=== PATIENT | male | born 1960 | race Caucasian/White ===

== ENCOUNTER 2022-09-04 07:59 | Observation (INO) ==
--- NOTE | 2022-08-04 12:03 | PAT Medication Instructions ---
Medication Instructions Date of Service August 04, 2022 Home Medications Medication Instructions Recorded Jakob Dexter #1 ea 06/12/22 Medication List: Celery Seed 1 tab PO DAILY arginine HCl (L-arginine) 1,000 mg tablet 1,000 mg PO DAILY ascorbic acid (vitamin C) 1,000 mg tablet (Vitamin C) 1,000 mg PO QAM beta carotene 7,500 mcg (25,000 unit) capsule 7,500 mcg PO DAILY cholecalciferol (vitamin D3) 25 mcg (1,000 unit) tablet (Vitamin D3) 25 mcg PO DAILY cyanocobalamin (vitamin B-12) 100 mcg tablet (Vitamin B-12) 100 mcg PO DAILY magnesium 250 mg tablet 250 mg PO DAILY omega 5-brs-skg-fish oil 1,000 mg (120 mg-180 mg) capsule (Fish Oil) 1 cap PO DAILY sour segovia extract 1,000 mg capsule (Tart Segovia Extract) 1,000 mg PO DAILY valsartan 160 mg-hydrochlorothiazide 12.5 mg tablet 1 tab PO QAM vitamin E 400 unit tablet 400 mg PO DAILY vitamins A,C,U-rrgs-vnvjuv 4,296 mcg-226 mg-90 mg capsule 1 cap PO DAILY STOP taking 2 weeks before surgery vitamin E 400 unit tablet 400 mg PO DAILY vitamins A,C,V-oqbb-ewssbq 4,296 mcg-226 mg-90 mg capsule 1 cap PO DAILY omega 2-glh-pqb-fish oil 1,000 mg (120 mg-180 mg) capsule (Fish Oil) 1 cap PO DAILY Celery Seed 1 tab PO DAILY arginine HCl (L-arginine) 1,000 mg tablet 1,000 mg PO DAILY sour segovia extract 1,000 mg capsule (Tart Segovia Extract) 1,000 mg PO DAILY DO NOT take the morning of surgery ascorbic acid (vitamin C) 1,000 mg tablet (Vitamin C) 1,000 mg PO QAM beta carotene 7,500 mcg (25,000 unit) capsule 7,500 mcg PO DAILY cholecalciferol (vitamin D3) 25 mcg (1,000 unit) tablet (Vitamin D3) 25 mcg PO DAILY cyanocobalamin (vitamin B-12) 100 mcg tablet (Vitamin B-12) 100 mcg PO DAILY magnesium 250 mg tablet 250 mg PO DAILY valsartan 160 mg-hydrochlorothiazide 12.5 mg tablet 1 tab PO QAM Other Notes If you have any questions please call us at [phone] or [phone] or [phone] or [phone]
--- NOTE | 2022-08-10 11:43 | Anesthesiology Consultation ---
Date of Service August 10, 2022 Assessment & Plan (1) Encounter for pre-operative examination: - Outpatient joint assessment: Patient is currently scheduled for inpatient pathway. If re-evaluated pending system levels during current pandemic/surgeon requests outpatient pathway, patient is not recommended candidate for outpatient joint program from anesthesia standpoint as patient's home support is not uncomfortable managing care at home for same day surgery. Chart Review Chart Review: Acceptable Risk for Surgery and Patient seen in Pre Admission Testing Teaching & Discussion Pre-Anesthesia Teaching/Discussion Notes: Instructed NPO after midnight before surgery, except medications with 15 cc of water. Medication instructions provided according to the PAT guidelines. History Surgery Operation Date: 09/04/22 07:00 Proposed Procedures p Right Total Knee Arthroplasty - Guanakito Howell MD Height/Weight Height: 5 ft 11 in Weight: 106.141 kg Allergies Allergy/AdvReac Type Severity Reaction Status Date / Time morphine Allergy Intermediate hives Verified 08/10/22 11:57 Medications Home Medications Medication Instructions Recorded Confirmed Last Taken Wheeled Walker #1 ea 06/12/22 06/12/22 Unknown Celery Seed 1 tab PO DAILY 08/04/22 08/04/22 Unknown arginine HCl (L-arginine) 1,000 mg 1,000 mg PO DAILY 08/04/22 08/04/22 Unknown tablet ascorbic acid (vitamin C) 1,000 mg 1,000 mg PO QAM 08/04/22 08/04/22 Unknown tablet (Vitamin C) beta carotene 7,500 mcg (25,000 7,500 mcg PO DAILY 08/04/22 08/04/22 Unknown unit) capsule cholecalciferol (vitamin D3) 25 25 mcg PO DAILY 08/04/22 08/04/22 Unknown mcg (1,000 unit) tablet (Vitamin D3) cyanocobalamin (vitamin B-12) 100 100 mcg PO DAILY 08/04/22 08/04/22 Unknown mcg tablet (Vitamin B-12) magnesium 250 mg tablet 250 mg PO DAILY 08/04/22 08/04/22 Unknown omega 3-ibb-xnb-fish oil 1,000 mg 1 cap PO DAILY 08/04/22 08/04/22 Unknown (120 mg-180 mg) capsule (Fish Oil) sour segovia extract 1,000 mg 1,000 mg PO DAILY 08/04/22 08/04/22 Unknown capsule (Tart Segovia Extract) valsartan 160 1 tab PO QAM 08/04/22 08/04/22 Unknown mg-hydrochlorothiazide 12.5 mg tablet vitamin E 400 unit tablet 400 mg PO DAILY 08/04/22 08/04/22 Unknown vitamins A,C,T-eire-ogythi 4,296 1 cap PO DAILY 08/04/22 08/04/22 Unknown mcg-226 mg-90 mg capsule Past Medical History Medical History (Updated 08/10/22 @ 12:09 by Ellie Russell PA-C) Gout hx History of COVID-summer - mild cold symptoms-resolved Hypertension controlled, stable per pt Needle phobia Patient denies h/o stroke, seizures, heart attack, heart failure, DM, blood clots or blood transfusions. Exercise / Class Metabolic Activity II 4-5 Yardwork/Stairs/Walk up hill (denies chest discomfort or shortness of breath with 1 FOS) Past Family History Family History Other No family history of adverse response to anesthesia Past Surgical History Surgical History History of colonoscopy History of hip replacement right History of tonsillectomy Past Anesthesia History No Hx of Anesthesia Complications and No Family Hx of Anesthesia Complications History of PONV No Hx of PONV and No Hx of Motion Sickness Social History Smoking Status: Current some day smoker (advised) tobacco type: cigars Do You Dip or Chew Tobacco: No Hx Alcohol Use: Yes Alcohol type: beer alcohol intake frequency: a few times a week Hx Substance Use: No substance use type: does not use Review of Systems Patient denies chest pain, shortness of breath, dyspnea on exertion, snoring, witnessed apneas, reflux, fever, chills, cough, wheezing, or palpitations. Physical Exam Vital Signs Vitals BP 164/102, 160/97 (Pt states had caffeine this morning, did not yet take antihypertensive and is nervous about bloodwork) P 93 SP02 96% on RA RESP 17 Physical Full cervical extension range of motion without pain TMD 3.5 finger breadths Mallampati Score 3 Dentition: intact, denies chipped or loose teeth, caps/crowns, implants or bridges Lungs: normal respiratory effort. Clear throughout to auscultation, no adventitious breath sounds Cardiac: regular rate and rhythm, no murmurs noted Carotid arteries: negative bruit bilat Lab Results Anesthesia Preop Results Results Anesthesia Widget: WBC 5.65 K/ul (4.8-10.8) 08/10/22 Hgb 15.9 g/dl (14.0-18.0) 08/10/22 Hct 46.3 % (42.0-52.0) 08/10/22 Plt 193 K/uL (130-400) 08/10/22 Na 132 mmol/L (136-145) L 08/10/22 K 3.7 mmol/L (3.5-5.1) 08/10/22 Cl 100 mmol/L (98-107) 08/10/22 CO2 22 mmol/L (21-32) 08/10/22 BUN 15 mg/dl (6-23) 08/10/22 Creat 0.81 mg/dl (0.6-1.4) 08/10/22 Glucose Level 92 mg/dl (70-99(Fasting)) 08/10/22 PT 10.2 Seconds (9.0-12.0) 08/10/22 PTT 26.6 Seconds (21.0-31.0) 08/10/22 INR 1.0 (0.9-1.1) 08/10/22 HA1c 5.5 % (4.5-5.6) 08/10/22 Blood Type A Positive 08/10/22 Antibody Screen NEGATIVE 08/10/22 Testing Electrocardiogram Date: 08/10/22 NSR, rate 91 bpm Chest X-Ray Date: 08/10/22 No prior studies are available for comparison at the time of dictation. The ca rdiomediastinal silhouette is unremarkable noting atherosclerotic calcification of the thoracic aorta. The lungs and pleural spaces are clear. There is no pneumothorax. The bony thorax appears intact. Degenerative change is noted in the spine. IMPRESSION: No active disease in the chest. COVID-19 Risk Screen Screening Information COVID-19 Screen Date: 08/10/22 Exposure 21 Days Family/Household +COVID Last 21 Days: No Exposure 10 Days Any COVID Exposure Last 10 Days: No Symptoms Last 10 Days Experienced COVID Sx Last 10 Days: No + COVID 0-90 Days COVID + in Last 0-90 Days: No
--- NOTE | 2022-08-28 18:48 | History and Physical Report ---
CHIEF COMPLAINT: Bilateral knee pain and discomfort, right side greater than left. HISTORY OF PRESENT ILLNESS: The patient is a 62-year-old gentleman who presents for surgical treatme nt of his right knee. He has got a long history of bilateral knee pain and discomfort, right side, a bit worse than the left. He has been followed by Susan with some injections, which helped only tempo rarily. He has global pain. The more he is up on his knees, the more they hurt. They swell more as the day goes on. He would like to proceed with surgical treatment. PAST MEDICAL HISTORY: Significant for, 1. Diabetes, well controlled with A1c of 5.5. 2. Arthritis. 3. Hypertension. PAST SURGICAL HISTORY: Includes right total hip replacement done elsewhere. ALLERGIES: GRASS. CURRENT MEDICATIONS: 1. Vitamin D3. 2. Vitamin C. 3. Valsartan. 4. Vitamin E. 5. Various other supplements. SOCIAL HISTORY: Significant for a 62-year-old gentleman. He lives in [place]. He drinks per day . Does not smoke. FAMILY HISTORY: Noncontributory. REVIEW OF SYSTEMS: Significant for diabetes, but well controlled. No chest pain or shortness of josi ath. No history of DVT or PE. No known bleeding problems. PHYSICAL EXAMINATION: GENERAL: He is a pleasant middle-aged male. Looks to be in good health. HEENT: Benign. NECK: Supple. No lymphadenopathy. LUNGS: Clear to auscultation. HEART: Regular rate and rhythm. ABDOMEN: Soft, nontender, and nondistended. EXTREMITIES: Grossly neurovascularly intact except as follows. Examination of both knees revealed patient ambulates independently. Examination of the right knee re veals valgus alignment to his knee, which is increased with weightbearing. Small knee effusion. Ran ge of motion 5-120. No instability. Examination of the left knee reveals a fairly neutral slight varus alignment. Tender over the medial joint line. Small knee effusion. Range of motion 5-125. No instability. X-RAYS: X-rays of both knees reveal advanced bilateral knee DJD. On the right knee, he has got comp lete loss of his lateral joint space. He has got tricompartment disease. He has got subchondral scl erosis. X-rays of the left knee reveal advanced medial compartment arthritis with complete loss of joint spac e. A little bit of tibial femoral subluxation. ASSESSMENT: A 62-year-old gentleman with history of right hip replacement in the past with advanced bilateral knee degenerative joint disease. He has failed conservative measures. The right knee is b othering more than the left. He would like to proceed with surgical intervention. PLAN: We will take him to the operating room and do a right total knee replacement. The risks and b enefits of this procedure were explained to the patient and include but not limited to DVT, PE, , infection, neurological injury, vascular injury, bleeding problem, pain, limited range of motion, s tiffness, failure to relieve symptoms, incomplete relief of symptoms, etc. The patient understands a nd desires to proceed. Informed consent was obtained. We will have to be a little careful with manipulating the IM canal as he has got hip replacement abov e. He is planning to be discharged to home using local PT and not home health. We will use aspirin for DVT prophylaxis. We will use insulin sliding scale coverage if we need to in the hospital for hi s diabetes, which is well controlled. Job ID: [id number]
[~2022-09-04 07:59] MED LIST: ACETAMINOPHEN 500 MG TAB PO SCH; BUPIVACAINE 0.5 % 5 MG/1 ML PF 10ML VIAL ONE; BUPIVACAINE LIPOSOME/PF 266 MG, BUPIVACAINE/EPINEPHRINE 50 ML, SODIUM CHLORIDE 0.9% PF ... INFIL SCH; CeleBREX 200 MG CAP PO SCH; FAMOTIDINE 20 MG TAB PO SCH; LR 500ML BOLUS, THEN 15ML/HR IV SCH; LR 60ML/HR IV SCH; METOCLOPRAMIDE HCL 10 MG TABLET PO SCH; ROPIVACAINE 0.5% 5 MG/ML 30 ML VIAL ONE; Scopolamine 1 MG TDSY TD SCH; TRANEXAMIC ACID 1,000 MG **IV Intra-op IV SCH; ceFAZolin 2000MG 2,000 MG/15 ML SYR IV SCH
--- NOTE | 2022-09-04 08:57 | History & Physical Bridge Note ---
Date of Service September 04, 2022 History & Physical Bridge Note I have examined the patient, reviewed the History & Physical and in the interval since the performance of the History & Physical I have noted the following changes of clinical significance: no changes noted
[2022-09-04] MEDS ORDERED: ONDANSETRON INJ 2 MG/ML 2 ML VIAL IV PRN ×2 (09:38→14:48)
[2022-09-04] MEDS ORDERED: ATROPINE SULFATE 0.1 MG/ML 10ML SYR IV PRN (09:38)
[2022-09-04] MEDS ORDERED: ePHEDrine sulfate 50 MG/ML AMP IV PRN (09:38)
[2022-09-04] MEDS ORDERED: fentaNYL citrate PF 100 MCG/2 ML VIAL IV PRN (09:38)
[2022-09-04] MEDS ORDERED: DEXAMETHASONE SOD INJ 4 MG/ML VIAL ONE (09:53)
[2022-09-04] MEDS ORDERED: PROPOFOL IV EMULSION 10 MG/ML 20 ML VIAL IV ONE ×4 (09:53→12:34)
[2022-09-04] MEDS ORDERED: ONDANSETRON INJ 2 MG/ML 2 ML VIAL ONE (09:53)
[2022-09-04] MEDS ORDERED: fentaNYL citrate PF 100 MCG/2 ML VIAL ONE (09:53)
[2022-09-04] MEDS ORDERED: MIDAZOLAM HCL 1 MG/ML 2ML VIAL ONE ×2 (09:53→11:48)
[2022-09-04] MEDS ORDERED: BUPIVACAINE LIPOSOME 1.3% 266 MG/20 ML VIAL ONE (11:10)
[2022-09-04] MEDS ORDERED: BUPIVACAINE/EPINEPHRINE 0.25% 1:200,000 30 ML VIAL ONE (11:10)
[2022-09-04] MEDS ORDERED: SODIUM CHLORIDE 0.9% PF 50 ML VIAL ONE (11:10)
[2022-09-04] MEDS ORDERED: CARBOHYDRATES FOR HYPOGLYCEMIA PO PRN (13:22)
[2022-09-04] MEDS ORDERED: GLUCAGON FOR INJ 1 MG VIAL SQ PRN (13:22)
[2022-09-04] MEDS ORDERED: GLUCOSE 10 TAB/TUBE PO PRN (13:22)
[2022-09-04] MEDS ORDERED: GLUCOSE 40% GEL 15 GM TUBE PO PRN (13:22)
[2022-09-04] MEDS ORDERED: DEXTROSE 50% 50 ML SYRINGE IV PRN (13:22)
[2022-09-04] MEDS ORDERED: PHARMACY GLYCEMIC MGMT CONSULT PRN (13:22)
--- NOTE | 2022-09-04 13:31 | Operative Report ---
PG Post Operative Report Pre & Post Diagnosis Operation Date: 09/04/22 10:40 Pre-Op Diagnosis: Right Knee Degenerative Joint Disease Post-Op Diagnosis: Right Knee Degenerative Joint Disease I identified the patient and participated in the time-out.: Yes Procedure Operation Date: 09/04/22 10:40 Actual Procedures p Right Total Knee Arthroplasty(Right) - Guanakito Howell MD Surgeon Guanakito Howell MD [employer] Operator Enrique Brewer PA-C Estimated Blood Loss 50 Findings Consistent with Post-Op Diagnosis Operative findings were advanced right knee tricompartment DJD. He had extensive grade 4 jrpu-ml-vbee disease in all 3 compartments. He had a fixed valgus deformity to his knee. Chronic ACL deficiency. Specimens Right knee sent for pathology Anesthesia Type Spinal MAC Complications none Disposition Accompanied Patient To Recovery: No Indications Patient is a 62-year-old fairly active gentleman said a long history of bilateral knee pain discomfort right side greater than left. He has been through extensive conservative treatment over the years which became less successful as time proceeded. The right knee was bothering more than the left. X-rays show advanced right knee tricompartment DJD with valgus deformity. The patient elected proceed with surgical treatment. Description of Procedure Operative implants consist of: 1. Biomet Vanguard size 72.5 right posterior stabilized femoral component. 2. Biomet size 79 tibial tray. 3. 10 mm posterior stabilized polyethylene insert. 4. 34 x 8 and half all poly patella. The patient was taken to the operating, identified, and placed on the operating table supine position protectors were properly padded. IV antibiotics tried by anesthesia team. A spinal anesthetic and abductor canal block had provided in the holding area. A Reno catheter was placed in sterile fashion. Right Tetrick was then placed in the right lower extremities and prepped draped in usual sterile fashion. The right leg was elevated exsanguinated with use of an Esmarch and the tourniquet was placed at 300 mmHg. An anterior approach to the right knee was then performed through a longitudinal incision centered over the patella. Sharp dissection was carried through subcutaneous tissue down the extensor mechanism. A medial parapatellar arthrotomy incision was made. Some subperiosteal dissection was carried out medially. The fat pad was resected from Neath patella tendon. Lateral patellofemoral ligament was released. Patella subluxated laterally knee was flexed. The osteophytes taken off the distal femur. The ACL was absent. The PCL was released from the distal femur. The tibia subluxated anteriorly. The external tibial alignment jig was then placed in the interface the tibia and adjusted 12 mm medially. Proximal tibial cut was made remove about 3 to 4 mm of bone from the medial side. This did take a very small portion off the side laterally due to the wear on that side. Some osteophytes taken off medial and posterior medially. Tibia sized to a size 79. Attention drawn the femur. The distal femur was then with a sharp drill. Intramedullary canal was suction. A right 6 degree valgus cutting guide was placed. Distal femoral cutting block was pinned in place. Distal femoral cut was made to take an additional 5 mm of bone off distal femur as with a 3 mm cut did not even get down quite to the notch. The knee was brought out in extension. A very carefully released to the IT band and some of the posterior lateral capsule in order to equalize extension gap. Great care was taken to protect the peroneal nerve at all times. The knee was flexed. Femur was then sized to a size 72.5. The AP cutting block was pinned parallel to the epicondylar axis which was 6 degrees of external rotation. Anterior cut, anterior chamfer, posterior cut, posterior chamfer cuts were made for the box cutting guide was placed in a just slight lateral box cut was made. The knee was flexed. The remnants of the medial and lateral menisci were excised. The osteophytes taken off the posterior aspect of the femur. I did release the popliteus tendon in order to equalize extension gap. Once again great care was taken to protect the peroneal nerve. The femoral component was then placed. Tibial tray was pinned in maximum external rotation and the drill and stem punch were used to create defect in proximal tibia for the tibial tray. Knee was then trialed the 10 mm insert fit most appropriately. Attention drawn the patella. The patella is cleaned of all soft tissues. Patella thickness measured 23 mm in thickness was cut down to 14. Was sized to a size 34 patella. The lug holes were drilled for the 34 patella. The lateral osteophytes removed. Patella button was placed. Knee was taken through range of motion and the patella tracked nicely with no thumbs test. Attention drawn to placing permanent components. Nupathe all trial components were removed. Bone plug was placed in the distal femur limit blood loss. A double batch Palacos G cement was mixed. A Biomet Vanguard size 72.5 right posterior stabilized femoral component, size 79 tibial tray, a 10 mm posterior stabilized polyethylene insert, and a 34 x 8 and half all Paller patella then cemented in place. Knee was brought into full extension till cement hardened. Final cement check was then performed. Pericap sular tissues were injected with total of 100 cc of combination of 20 cc Exparel, 30 cc normal saline, 50 cc of quarter percent Marcaine with epinephrine. Patient did receive 1 g tranexamic acid. The tourniquet was then finally let down for tourniquet time 64 minutes. Hemostasis assured use electrocautery. Extensor mechanism closed with combination 1 PDS suture #1 Vicryl suture in [id number] fashion. Extensor mechanism checked found to be intact with subcutaneous tissues then closed with 2 Dexon suture in a buried interrupted fashion. The skin was closed with skin sandro. Leg was then cleaned and dried and sterile dressing was Xeroform, 4 fours, sterile cast padding, Félix bandage were applied. Patient then transferred to the recovery room in stable condition. Patient tolerated the procedure well and there are no complications. Enrique Brewer, my physician animal assistant, was present for the entire procedure. His assistance was essential and required for appropriate patient positioning, prepping and draping, surgical exposure, performing the technical details of the operation, placement the implants, closure of the wound, and placement of the sterile bandage. I attest to the content of the Intraoperative Record and any orders documented therein. Any exceptions are noted below.
--- NOTE | 2022-09-04 13:51 | XRay Report ---
XR knee RT 1 or 2V routine HISTORY: 62 years-old Male Surgical Post Op right knee arthroplasty COMPARISON: Knee radiographs 10/20/2021 TECHNIQUE: 2 views of the right knee FINDINGS: Total joint arthroplasty with patellar resurfacing. Anterior midline skin sandro are noted along wit h expected postoperative soft tissue swelling with deep tissue air. No acute fracture, alignment or u nexpected opaque foreign body. IMPRESSION: Total joint arthroplasty with expected postoperative changes. ACT 112: Negative or not required by law. The above report was generated using voice recognition software. It may contain grammatical, syntax o r spelling errors. Electronically signed by: Gage Callaway M.D. 09/04/2022 1:50 PM
--- NOTE | 2022-09-04 14:40 | Anesthesiology Progress Note ---
Date of Service September 04, 2022 Anesthesia Post Procedure Vital Signs Vital Signs: Temp Pulse Pulse Resp BP BP Pulse Ox 09/04/22 14:30 36.5 C 73 14 111/72 97 09/04/22 14:20 73 28 H 120/76 98 09/04/22 13:50 78 17 119/69 97 09/04/22 13:40 85 17 119/78 98 09/04/22 14:10 81 26 H 132/80 97 09/04/22 14:00 74 22 128/70 96 09/04/22 13:30 91 H 17 122/65 97 09/04/22 13:24 36.3 C L 96 H 23 114/50 L 96 09/04/22 09:09 36.7 C 93 H 18 153/94 H 97 O2 Del Method O2 Flow Rate 09/04/22 14:30 Nasal Cannula 2 09/04/22 14:20 Nasal Cannula 2 09/04/22 13:50 Nasal Cannula 4 09/04/22 13:40 Nasal Cannula 4 09/04/22 14:10 Nasal Cannula 2 09/04/22 14:00 Nasal Cannula 2 09/04/22 13:30 Nasal Cannula 4 09/04/22 13:24 Nasal Cannula 4 09/04/22 09:09 Room Air Transfer of Care Handoff Completed per policy Notes Mental Status: alert / awake / arousable Patient Amnestic to Procedure: Yes Nausea / Vomiting: adequately controlled Pain: adequately controlled Airway Patency, RR, SpO2: stable & adequate BP & HR: stable & adequate Hydration State: stable & adequate Neuraxial Anesthesia: was administered and sensory block is resolving Anesthetic Complications: no major complications apparent
[2022-09-04] MEDS ORDERED: HYDROmorphone INJ 0.5 MG/0.5 ML SYR IV PRN (14:48)
[2022-09-04] MEDS ORDERED: METOCLOPRAMIDE HCL INJ 5 MG/ML 2 ML VIAL IV PRN (14:48)
[2022-09-04] MEDS ORDERED: MAGNESIUM HYDROXIDE SUSP 30 ML UDC PO PRN (14:48)
[2022-09-04] MEDS ORDERED: ALUMINUM/MAGNESIUM SUSP 30 ML UDC PO PRN (14:48)
[2022-09-04] MEDS ORDERED: bisacodyL 10 MG SUPP PR PRN (14:48)
[2022-09-04] MEDS ORDERED: diphenhydrAMINE Capsule 25 MG CAP PO PRN (14:48)
[2022-09-04] MEDS ORDERED: NALOXONE HCL 0.4 MG/1 ML VIAL/CARP IV PRN (14:48)
[2022-09-04] MEDS: SODIUM CHLORIDE 0.9% 1000ML 1,000 ML IV SCH ×2 (15:20→21:28)
[2022-09-04] MEDS: ACETAMINOPHEN 500 MG TAB PO SCH ×2 (15:48→20:16)
[2022-09-04] MEDS: Scopolamine CHECK PATCH PLACEMENT SCH ×2 (15:50→23:28)
[2022-09-04] MEDS: ASCORBIC ACID 500 MG TAB PO SCH (15:51)
[2022-09-04] MEDS: oxyCODONE HCL IR 5 MG TAB (IMMEDIATE RELEASE) PO PRN (18:40)
[2022-09-04] MEDS ORDERED: TRANEXAMIC ACID / 0.7% NACL 1,000 MG/100 ML BAG IV SCH (19:30)
[2022-09-04] MEDS: DOCUSATE SODIUM 100 MG CAP PO SCH (20:16)
[2022-09-04] MEDS: ASPIRIN 81 MG ECTAB PO SCH (20:16)
[2022-09-04] MEDS: KETOROLAC 30 MG/ML VIAL IV SCH (20:17)
[2022-09-04] MEDS: ceFAZolin 2000MG 2,000 MG/15 ML SYR IV SCH (20:17)
[2022-09-04] MEDS ORDERED: SENNA 8.6 MG TAB PO SCH ×2 (21:00)
[2022-09-05] MEDS: ceFAZolin 2000MG 2,000 MG/15 ML SYR IV SCH (05:13)
[2022-09-05] MEDS: KETOROLAC 30 MG/ML VIAL IV SCH ×2 (05:14→09:13)
[2022-09-05 07:14] LABS: Hematocrit (blood only) 39.6 % (42.0-52.0); Hemoglobin 13.7 g/dl (14.0-18.0); Mean Corpuscular Hgb Conc 34.6 g/dL (32.0-36.0); Mean Corpuscular Volume 86.7 fL (80.0-100.0); Mean Platelet Volume 8.9 fL (9.4-12.4); Platelet Count 192 K/uL (130-400); RDW Coefficient of Variation 12.1 % (11.5-14.5); RDW Standard Deviation 38.5 fL (36.4-46.3); Red Blood Count 4.57 M/uL (4.70-6.10); White Blood Count 12.24 K/ul (4.8-10.8)
[2022-09-05 07:20] LABS: Calcium 8.4 mg/dl (8.6-10.3); Creatinine Clr Calc Pharmacy 98.1 ml/min; Est GFR (African American) 93.7 ml/min; Est GFR (Non-African American) 80.9 ml/min; Potassium 4.1 mmol/L (3.5-5.1)
--- NOTE | 2022-09-05 07:57 | Progress Notes ---
DATE OF SERVICE: 09/05/2022. SUBJECTIVE: A 62-year-old gentleman, postoperative day 1 from a right knee replacement. He is doing pretty well. Had a reasonable night. Pain is controlled. No chest pain or shortness of breath. N ot feeling dizzy or lightheaded. OBJECTIVE: VITAL SIGNS: Temperature 36.6. Vital signs are stable. GENERAL: Shows a pleasant middle-aged male. He is sitting up in bed, looks quite comfortable. LUNGS: Clear to auscultation. HEART: Has a regular rate and rhythm. ABDOMEN: Soft, nontender, nondistended. EXTREMITIES: Grossly neurovascularly intact except as follows. Examination of the right leg reveals the leg to be well aligned. Dressing is clean, dry and intact. He can dorsiflex and plantarflex his foot appropriately. He is neurologically intact. LABORATORY DATA: Hemoglobin 13.7. Hematocrit 39.6. White cell count elevated at 12.24. Electrolyt es are stable. ASSESSMENT: A 62-year-old gentleman, postoperative day 1 from right knee replacement, doing well. P ain is controlled. He is neurologically intact. PLAN: 1. DVT prophylaxis includes thigh-high TEDs, SCDs, and aspirin twice a day. 2. PT/OT. He can fully weight bear as tolerated on the right leg. 3. Pain control, doing okay with current pain regimen. 4. Disposition: Plan to discharge to home with some home health likely today after therapy if he do es okay. Job ID: [id number]
[2022-09-05] MEDS ORDERED: dexAMETHasone 10 MG in SYRINGE 0 ML IV SCH (08:00)
[2022-09-05] MEDS: ASCORBIC ACID 500 MG TAB PO SCH (08:57)
[2022-09-05] MEDS: Scopolamine CHECK PATCH PLACEMENT SCH (08:58)
[2022-09-05] MEDS: ASPIRIN 81 MG ECTAB PO SCH (08:59)
[2022-09-05] MEDS: DOCUSATE SODIUM 100 MG CAP PO SCH (08:59)
[2022-09-05] MEDS ORDERED: MULTIVITAMIN TAB PO SCH (09:00)
[2022-09-05] MEDS ORDERED: VALSARTAN/HCTZ 160/12.5MG TAB PO SCH (09:00)
[2022-09-05] MEDS ORDERED: VALSARTAN 80 MG TAB PO SCH (09:00)
[2022-09-05] MEDS ORDERED: hydroCHLOROthiazide 25 MG TAB PO SCH (09:00)
[2022-09-05] MEDS ORDERED: ARGININE HCL 1000 MG PO SCH (09:00)
[2022-09-05] MEDS ORDERED: MAGNESIUM OXIDE 400 MG TAB PO SCH (09:00)
[2022-09-05] MEDS ORDERED: CHOLECALCIFEROL 1,000 UNITS 25 MCG TAB PO SCH (09:00)
[2022-09-05] MEDS ORDERED: CEROVITE ADV FORMULA TAB PO SCH (09:00)
[2022-09-05] MEDS ORDERED: CELERY SEED PO SCH (09:00)
[2022-09-05] MEDS ORDERED: VITAMIN A 25,000 UNIT CAP PO SCH (09:00)
[2022-09-05] MEDS ORDERED: NON-FORMULARY MEDICATION (Ascorbic Acid (Vitamin C) [Vitamin C] 1,000 mg Tablet) PO SCH (09:00)
[2022-09-05] MEDS ORDERED: NON-FORMULARY MEDICATION (Sour Cherry Extract [Tart Cherry Extract] 1,000 mg Capsule) PO SCH (09:00)
[2022-09-05] MEDS ORDERED: OMEGA-3 (PURIFIED FISH OIL) 1 GM CAP PO SCH (09:00)
[2022-09-05] MEDS ORDERED: TOCOPHERYL, DL-ALPHA 400 UNITS 180 MG CAP PO SCH (09:00)
[2022-09-05] MEDS ORDERED: TAMSULOSIN HCL 0.4 MG CAP PO SCH (09:00)
[2022-09-05] MEDS ORDERED: CYANOCOBALAMIN (B-12) 100 MCG TABLET PO SCH (09:00)
[2022-09-05] MEDS: ACETAMINOPHEN 500 MG TAB PO SCH (09:13)
[2022-09-05] MEDS: oxyCODONE HCL IR 5 MG TAB (IMMEDIATE RELEASE) PO PRN (11:09)
--- NOTE | 2022-09-09 08:35 | Discharge Summary ---
Date of Service September 09, 2022 Discharge Data Procedures Performed Operation Date: 09/04/22 10:40 Actual Procedures p Right Total Knee Arthroplasty(Right) - Guanakito Howell MD Hospital Course (1) Status post total right knee replacement: This is a 62 year old patient admitted on 09/04/22 and underwent total knee arthroplasty. He tolerated the procedure well and there were no complications. Transferred to the PACU post op and later to the orthopedic floor for further care. He was given ancef for antibiotic prophylaxis. He was also given KWASI stockings, SCDs, and aspirin for DVT prophylaxis. Hemoglobin, hematocrit, and vital signs were monitored during his hospital stay and remained stable. Did not require any blood transfusions. There were no complications during his hospital stay. By post op day #1 the patient was tolerating a regular diet, pain was reasonably controlled with oral pain medicine, and he was participating in physical therapy. On post op day #1 the patient was discharged home and set up with home health care. He was given printed discharge instructions including prescriptions for extra strength tylenol, aspirin, cefadroxil. ketorolac, zofran, senokot, flomax, and oxycodone. Continue physical therapy, weight bearing as tolerated. Continue KWASI stockings. Follow up approximately 2 weeks post op or sooner if there are problems or concerns. Coding Level of Care Code None Diagnoses Status post total right knee replacement Z96.651
== END 2022-09-05 12:48 | disposition home health service (06) ==
LOC: ASU 07:59 → 3W 07:59